=== PATIENT | female | born 1950 | race Caucasian/White ===

== ENCOUNTER → 2020-01-09 | Outpatient (CLI) | payer BC ==
--- NOTE | 2020-01-09 20:14 | Diagnostic Imaging Report ---
Parathyroid Scan with SPECT Reason for exam: Hypercalcemia Radiopharmaceutical: Tc-99m sestamibi 27 mCi IV right hand After intravenous administration of the radiopharmaceutical, immediate and 2-hour planar images of the neck and upper chest were obtained. Tomographic images of the neck and upper chest were obtained following the initial planar images. On the initial planar images, a focus of increased tracer is seen in the lower pole of the left thyroid lobe. On the tomographic images, this focus is localized immediately posterior to the plane of the thyroid at the inferior pole of the left thyroid lobe. On the delayed planar images, the thyroid washes out adequately and this focus persists. No other focal abnormalities are identified. Impression: Single enlarged hypermetabolic parathyroid gland is identified posteriorly to the lower pole of the left thyroid lobe. Signed by: Dr. Africa Fuentes M.D. on 01/09/2020 8:11 PM
== END ==
LOC: NM 08:16
PROVIDERS: ATTEND Internal Medicine Medical Oncology
DX: E83.52 Hypercalcemia (principal)
CPT/HCPCS: 78071; A9500

== ENCOUNTER 2020-09-19 06:03 | Observation (INO) | payer BC ==
[2020-09-14 10:51] LABS: BASOPHILS # (AUTO) 0.1 (0.0-0.1); BASOPHILS % 0.8 % (0.0-1.0); EOSINOPHILS # (AUTO) 0.1 (0.0-0.4); EOSINOPHILS % 1.3 % (0.0-6.0); HEMATOCRIT 45.4 % (34.2-44.1); HEMOGLOBIN 14.6 g/dL (12.0-16.0); LYMPHOCYTES # (AUTO) 2.1 (1.0-3.2); LYMPHOCYTES % 26.2 % (18.0-39.1); MEAN CORPUSCULAR HEMOGLOBIN 29.5 pg (28-32); MEAN CORPUSCULAR HGB CONC 32.2 g/dL (31-35); MEAN CORPUSCULAR VOLUME 91.7 fL (81-99); MONOCYTES # (AUTO) 0.6 (0.2-0.8); MONOCYTES % 7.1 % (4.4-11.3); NEUTROPHILS # (AUTO) 5.1 (2.1-6.9); NEUTROPHILS % 64.3 % (38.7-80.0); PLATELET COUNT 419 x10e3/uL (140-360); RED BLOOD COUNT 4.95 x10e6/uL (3.6-5.1); RED CELL DISTRIBUTION WIDTH 13.5 % (11.7-14.4)
[2020-09-14 11:23] LABS: ALANINE AMINOTRANSFERASE 17 IU/L (0-55); ALBUMIN 4.3 g/dL (3.5-5.0); ALBUMIN/GLOBULIN RATIO 1.4 (0.8-2.0); ALKALINE PHOSPHATASE 56 IU/L (40-150); ANION GAP 11.7 mmol/L (8-16); BLOOD UREA NITROGEN 12 mg/dL (7-26); BUN/CREATININE RATIO 15 (6-25); CALCIUM 11.7 mg/dL (8.4-10.2); CARBON DIOXIDE 23 mmol/L (22-29); CHLORIDE 109 mmol/L (98-107); CREATININE, SERUM 0.82 mg/dL (0.57-1.11); EST GLOMERULAR FILTRATION RATE > 60 ML/MIN (60-); GLUCOSE 96 mg/dL (74-118); POTASSIUM 3.7 mmol/L (3.5-5.1); SODIUM 140 mmol/L (136-145)
[~2020-09-19] VITALS: Ht 157.5 cm; Wt 67.1 kg
[~2020-09-19 06:03] MED LIST: ALENDRONATE SODI5 MG
[2020-09-19] MEDS ORDERED: HYDROCODONE/APAP 7.5MG-325MG 1 EA TAB PO PRN (10:30)
[2020-09-19] MEDS ORDERED: HYDROMORPHONE 1MG/1ML INJ IV PRN (10:30)
[2020-09-19] MEDS ORDERED: ACETAMINOPHEN 1000 MG/100 ML IV PRN (10:30)
[2020-09-19] MEDS ORDERED: ONDANSETRON HCL INJ 2MG/ML 2ML 2 MG/ML VIAL IV PRN (10:30)
[2020-09-19] MEDS ORDERED: FENTANYL CITRATE/PF 100MCG/2 ML INJ ONE ×2 (10:46→13:47)
[2020-09-19] MEDS ORDERED: GLYCOPYRROLATE INJ 0.2 MG/ML VIAL ONE (12:18)
[2020-09-19] MEDS ORDERED: DEXAMETHASONE SOD PHOS INJ 4 MG/ML VIAL ONE (12:18)
[2020-09-19] MEDS ORDERED: ROCURONIUM BROMIDE 10 MG/ML 5ML VIAL IV ONE (12:18)
[2020-09-19] MEDS ORDERED: PROPOFOL IV EMULSION 10 MG/ML 20 ML VIAL ONE (12:18)
[2020-09-19] MEDS ORDERED: PHENYLEPHRINE HCL 1% 10 MG/ML VIAL ONE (12:18)
[2020-09-19] MEDS ORDERED: LIDOCAINE HCL 2% LOCAL INJ 5 ML SDV VIAL INJ ONE (12:18)
[2020-09-19] MEDS ORDERED: ONDANSETRON HCL INJ 2MG/ML 2ML 2 MG/ML VIAL ONE ×2 (12:18→13:08)
[2020-09-19] MEDS ORDERED: NEOSTIGMINE 1 MG/ML 10ML VIAL ONE (12:18)
[2020-09-19] MEDS ORDERED: SEVOFLURANE INHAL SOLN 250 ML PEN BTL ONE (12:18)
[2020-09-19] MEDS ORDERED: METOCLOPRAMIDE HCL 10 MG/2ML VIAL ONE (13:08)
[2020-09-19] MEDS: ACETAMINOPHEN 325 MG TAB PO PRN ×2 (13:10→19:57)
[2020-09-19] MEDS ORDERED: ACETAMINOPHEN 325 MG/10 ML UDC ONE (13:16)
[2020-09-19] MEDS: PANTOPRAZOLE 40 MG 10ML VIAL IV SCH (13:35)
[2020-09-19] MEDS ORDERED: PANTOPRAZOLE 40 MG 10ML VIAL ONE (13:42)
[2020-09-19 15:31] VITALS: BP 122/71
[2020-09-19 16:10] VITALS: BP 122/71
[2020-09-19] MEDS: DEXTROSE 5%/LACTATED RINGERS 1,000 ML IV SCH ×2 (17:10→20:30)
[2020-09-19] MEDS ORDERED: ALENDRONATE SOD70 MG (17:21)
[2020-09-19 20:00] VITALS: BP 116/63
[2020-09-19 21:18] VITALS: BP 116/63
[2020-09-20] VITALS (7 sets, daily range): BP systolic 116–142; BP diastolic 60–75
[2020-09-20] MEDS: DEXTROSE 5%/LACTATED RINGERS 1,000 ML IV SCH ×2 (03:32→15:27)
[2020-09-20 05:50] LABS: BASOPHILS % 0.3 % (0.0-1.0); EOSINOPHILS % 0.1 % (0.0-6.0); HEMATOCRIT 35.8 % (34.2-44.1); HEMOGLOBIN 11.8 g/dL (12.0-16.0); LYMPHOCYTES # (AUTO) 2.5 (1.0-3.2); LYMPHOCYTES % 24.3 % (18.0-39.1); MEAN CORPUSCULAR HEMOGLOBIN 29.4 pg (28-32); MEAN CORPUSCULAR VOLUME 89.3 fL (81-99); MONOCYTES # (AUTO) 1.6 (0.2-0.8); MONOCYTES % 14.8 % (4.4-11.3); NEUTROPHILS # (AUTO) 6.3 (2.1-6.9); NEUTROPHILS % 60.2 % (38.7-80.0); PLATELET COUNT 410 x10e3/uL (140-360); RED BLOOD COUNT 4.01 x10e6/uL (3.6-5.1); RED CELL DISTRIBUTION WIDTH 13.6 % (11.7-14.4)
[2020-09-20 06:21] LABS: ALANINE AMINOTRANSFERASE 12 IU/L (0-55); ALBUMIN 3.3 g/dL (3.5-5.0); ALBUMIN/GLOBULIN RATIO 1.3 (0.8-2.0); ALKALINE PHOSPHATASE 43 IU/L (40-150); ANION GAP 10.5 mmol/L (8-16); BLOOD UREA NITROGEN 9 mg/dL (7-26); BUN/CREATININE RATIO 12 (6-25); CALCIUM 8.8 mg/dL (8.4-10.2); CARBON DIOXIDE 23 mmol/L (22-29); CHLORIDE 109 mmol/L (98-107); CREATININE, SERUM 0.76 mg/dL (0.57-1.11); EST GLOMERULAR FILTRATION RATE > 60 ML/MIN (60-); GLUCOSE 121 mg/dL (74-118); POTASSIUM 3.5 mmol/L (3.5-5.1); SODIUM 139 mmol/L (136-145)
[2020-09-20] MEDS: ACETAMINOPHEN 325 MG TAB PO PRN (10:12)
[2020-09-20] MEDS: PANTOPRAZOLE 40 MG 10ML VIAL IV SCH (15:21)
== END 2020-09-20 21:45 | disposition home or self-care (01) ==
LOC: OR 06:03 → PACU V 10:38 → MED/SURG 15:32
PROVIDERS: ADMIT Surgery; ATTEND Surgery
DX: D35.1 Benign neoplasm of parathyroid gland (principal); E21.0 Primary hyperparathyroidism; Z11.59 Encounter for screening for other viral diseases; M81.0 Age-related osteoporosis without current pathological fracture
CPT/HCPCS: 36415 ×3; 60200; 71046; 80053 ×2; 82310 ×2; 83970; 85025 ×2; 88305; 88331; 88332; 88333; 93005; 96361 ×2; C9113 ×2; G0378 ×2; J1100; J2001; J2370; J2405; J2704; J2710; J2765; J3010; J7121 ×2; U0002; 96360

== ENCOUNTER 2021-06-16 07:32 | Emergency (ER) | payer BC, MEDICARE, OTHER ==
[~2021-06-16] VITALS: Ht 154.9 cm; Wt 71.8 kg
[~2021-06-16 07:32] MED LIST changes: +ALENDRONATE SOD70 MG
[2021-06-16] MEDS ORDERED: MONTELUKAST SOD10 MG PO (08:05)
[2021-06-16] MEDS ORDERED: FLONASE ALLERG9.9 ML INH (08:05)
== END 2021-06-16 08:37 | disposition home or self-care (01) ==
LOC: FSED 07:50
DX: S80.12XA Contusion of left lower leg, initial encounter (principal); W01.0XXA Fall on same level from slipping, tripping and stumbling without subsequent striking against object, initial encounter; Y92.018 Other place in single-family (private) house as the place of occurrence of the external cause; M85.80 Other specified disorders of bone density and structure, unspecified site; M79.662 Pain in left lower leg
CPT/HCPCS: 99283